=== PATIENT | female | born 1940 | race Caucasian/White ===

== ENCOUNTER 2018-06-16 19:11 | Inpatient (IN) ==
[2018-06-16] MEDS ORDERED: ALBUTEROL/IPRATROPIUM 3 ML NEB RESP TX STA (19:22)
[2018-06-16] MEDS ORDERED: ASPIRIN 325 MG TABLET PO STA (19:22)
[2018-06-16 19:28] LABS: Basophils % 0.6 % (0.0-0.8); Eosinophils # 0.2 10*3/uL (0.0-0.87); Eosinophils % 3.1 % (0.00-10.9); Hematocrit 41.3 VOL% (35.7-47.0); Immature Granulocytes % 0.5 %; Immature Granulocytes Absolute 0.03 #; Lymphocytes # 1.1 10*3/uL (1.4-4.0); Lymphocytes % 16.9 % (21.3-54.2); Mean Corpuscular HGB Conc 33.9 GM/DL (32-36); Mean Corpuscular Hemoglobin 34 PG (27-34); Mean Platelet Volume 9.6 FL (9.6-12.0); Monocytes # 0.9 10*3/uL (0.11-0.8); Monocytes % 14.2 % (1.7-12.7); Neutrophils # 4.2 10*3/uL (1.4-7.4); Neutrophils % 64.7 % (38.7-73.9); Platelet Count 213 T/CUMM (130-400); Red Blood Count 4.13 MC/CUMM (3.8-5.5); Red Cell Distribution Width 12.4 % (9.3-17.3); White Blood Count 6.5 T/CUMM (4-12)
[2018-06-16 19:37] LABS: INR 0.9
[2018-06-16 19:51] LABS: Alanine Aminotransferase 85 U/L (13-56); Albumin 3.9 G/DL (3.4-5.0); Alkaline Phosphatase 75 U/L (45-117); Aspartate Amino Transferase 68 U/L (0-37); Blood Urea Nitrogen 12 MG/DL (7-18); Calcium 8.5 MG/DL (8.5-10.1); Glucose 109 MG/DL (74-106); Potassium 3.9 MMOL/L (3.5-5.1); Sodium 136 MMOL/L (136-145); Total Protein 7.8 G/DL (6.4-8.3); Troponin I < 0.015 NG/ML (0.00-0.045)
[2018-06-16] MEDS ORDERED: RACEPINEPHRINE 0.5 ML NEB RESP TX STA (20:37)
[2018-06-16] MEDS ORDERED: methylPREDNISolone SOD SUC 125 MG/2 ML VIAL IV STA (20:37)
[2018-06-16] MEDS ORDERED: LORazepam 2 MG/1 ML VIAL IV STA (20:54)
[2018-06-16] MEDS ORDERED: cefTRIAXone 1,000 MG in SODIUM CHLORIDE 0.9% 100 ML IV STA (21:07)
[2018-06-16] MEDS ORDERED: AZITHROMYCIN INJ 500 MG in SODIUM CHLORIDE 0.9% 250 ML IV STA ×2 (21:07→23:14)
[2018-06-16] MEDS ORDERED: ONDANSETRON 4 MG/2 ML VIAL IV PRN (21:18)
[2018-06-16] MEDS: SODIUM CHLORIDE 0.9% 1,000 ML IV SCH (22:55)
[2018-06-17] MEDS: methylPREDNISolone SOD SUC 40 MG/1 ML VIAL IV SCH ×4 (03:15→22:26)
[2018-06-17] MEDS: ACETAMINOPHEN 325 MG TABLET PO PRN ×2 (04:24→17:53)
[2018-06-17 05:15] LABS: Basophils % 0.2 % (0.0-0.8); Hematocrit 40.8 VOL% (35.7-47.0); Hemoglobin 13.3 GM/DL (12.0-16.0); Immature Granulocytes % 0.5 %; Immature Granulocytes Absolute 0.03 #; Lymphocytes # 0.4 10*3/uL (1.4-4.0); Lymphocytes % 7.2 % (21.3-54.2); Mean Corpuscular HGB Conc 32.6 GM/DL (32-36); Mean Corpuscular Hemoglobin 34 PG (27-34); Mean Platelet Volume 9.9 FL (9.6-12.0); Monocytes # 0.1 10*3/uL (0.11-0.8); Monocytes % 1.2 % (1.7-12.7); Neutrophils # 5.2 10*3/uL (1.4-7.4); Neutrophils % 90.9 % (38.7-73.9); Platelet Count 221 T/CUMM (130-400); Red Blood Count 3.96 MC/CUMM (3.8-5.5); Red Cell Distribution Width 12.4 % (9.3-17.3); White Blood Count 5.7 T/CUMM (4-12)
[2018-06-17 05:28] LABS: Albumin 3.2 G/DL (3.4-5.0); Bilirubin,Total 0.9 MG/DL (0.2-1.0); Calcium 8.4 MG/DL (8.5-10.1); Osmolality,Calculated 283.7 MOS/KG (273-304); Potassium 4.5 MMOL/L (3.5-5.1); Total Protein 7.1 G/DL (6.4-8.3)
[2018-06-17 05:57] LABS: Band Neutrophils 1 % (0-10); Lymphocytes 6 % (20-55); Metamyelocytes 1 %; Platelet Estimate Normal; Segmented Neutrophils 90 % (50-85); Total Cells Counted 100
[2018-06-17 05:58] LABS: Anisocytosis Slight; Macrocytosis Slight
[2018-06-17] MEDS: SODIUM CHLORIDE 0.9% 1,000 ML IV SCH ×3 (07:47→22:20)
[2018-06-17] MEDS: cefTRIAXone 1,000 MG in SYRINGE 1 EACH IV SCH (10:06)
[2018-06-17] MEDS: CHOLECALCIFEROL 5,000 UNIT TABLET PO SCH (10:07)
[2018-06-17] MEDS: PANTOPRAZOLE 40 MG TABLET PO SCH (10:07)
[2018-06-17] MEDS: DOCUSATE SODIUM 100 MG CAPSULE PO SCH ×2 (10:07→21:55)
[2018-06-17] MEDS: ROSUVASTATIN 10 MG TABLET PO SCH (10:07)
[2018-06-17] MEDS: ENOXAPARIN 40 MG/0.4 ML SYRINGE SUBCUT SCH (10:07)
[2018-06-17] MEDS: SPIRONOLACTONE 25 MG TABLET PO SCH (10:08)
[2018-06-17] MEDS: BUMETANIDE 1 MG TABLET PO SCH (10:08)
[2018-06-17] MEDS: DILTIAZEM CD 120 MG CAPSULE PO SCH (10:08)
[2018-06-17] MEDS: ASPIRIN CHEW 81 MG TABLET PO SCH (10:08)
[2018-06-17] MEDS: ZAFIRLUKAST 20 MG TABLET PO SCH (10:26)
[2018-06-17] MEDS ORDERED: METOPROLOL SUCCINATE XL 50 MG TABLET PO SCH (10:30)
[2018-06-17] MEDS: ALBUTEROL/IPRATROPIUM 3 ML NEB RESP TX SCH ×2 (14:24→14:34)
[2018-06-17] MEDS ORDERED: KETOROLAC 15 MG/1 ML VIAL IV ONE (15:00)
[2018-06-17] MEDS ORDERED: ALBUTEROL 1.25 MG/3 ML NEB RESP TX PRN (17:42)
[2018-06-17] MEDS: CLORAZEPATE 7.5 MG TABLET PO SCH (17:52)
[2018-06-17] MEDS ORDERED: BENZONATATE 100 MG CAPSULE PO SCH (21:00)
[2018-06-17] MEDS: FLUTICASONE 44 MCG/PUFF INHALER 10.6 GM INH SCH (21:54)
[2018-06-17] MEDS: DEXTROMETHORPHAN ER 6 MG/ML 90 ML/BOTTLE PO SCH (21:54)
[2018-06-17] MEDS: AMITRIPTYLINE 10 MG TABLET PO SCH (21:54)
[2018-06-18] MEDS ORDERED: DEXTROSE 50% 25 GM/50 ML VIAL IV PRN (05:17)
[2018-06-18] MEDS ORDERED: GLUCAGON 1 MG VIAL IM PRN (05:17)
[2018-06-18] MEDS: SODIUM CHLORIDE 0.9% 1,000 ML IV SCH ×2 (06:42→16:25)
[2018-06-18] MEDS: methylPREDNISolone SOD SUC 40 MG/1 ML VIAL IV SCH ×2 (06:43→16:25)
[2018-06-18] MEDS: LEVOTHYROXINE 50 MCG TABLET PO SCH (06:43)
[2018-06-18] MEDS: ALBUTEROL 1.25 MG/3 ML NEB RESP TX SCH ×5 (07:18→23:06)
[2018-06-18] MEDS: BENZONATATE 100 MG CAPSULE PO PRN ×2 (08:47→18:56)
[2018-06-18] MEDS: DILTIAZEM CD 120 MG CAPSULE PO SCH (08:47)
[2018-06-18] MEDS: ROSUVASTATIN 10 MG TABLET PO SCH (08:47)
[2018-06-18] MEDS: MAGNESIUM CHLORIDE 64 MG TABLET PO SCH (08:47)
[2018-06-18] MEDS: POTASSIUM CHLORIDE 10 MEQ TABLET PO SCH (08:48)
[2018-06-18] MEDS: PANTOPRAZOLE 40 MG TABLET PO SCH (08:48)
[2018-06-18] MEDS: CLORAZEPATE 7.5 MG TABLET PO SCH ×2 (08:48→20:51)
[2018-06-18] MEDS: METOPROLOL SUCCINATE XL 25 MG TABLET PO SCH (08:48)
[2018-06-18] MEDS: DOCUSATE SODIUM 100 MG CAPSULE PO SCH ×3 (08:48→20:54)
[2018-06-18] MEDS: BUMETANIDE 1 MG TABLET PO SCH (08:48)
[2018-06-18] MEDS: CHOLECALCIFEROL 5,000 UNIT TABLET PO SCH (08:48)
[2018-06-18] MEDS: ASPIRIN CHEW 81 MG TABLET PO SCH (08:48)
[2018-06-18] MEDS: cefTRIAXone 1,000 MG in SYRINGE 1 EACH IV SCH (08:48)
[2018-06-18] MEDS: SPIRONOLACTONE 25 MG TABLET PO SCH (08:48)
[2018-06-18] MEDS: INSULIN LISPRO 100 UNIT/ML SUBCUT SCH ×4 (08:49→20:53)
[2018-06-18] MEDS: FLUTICASONE 44 MCG/PUFF INHALER 10.6 GM INH SCH ×2 (08:53→20:51)
[2018-06-18] MEDS: ZAFIRLUKAST 20 MG TABLET PO SCH (08:53)
[2018-06-18] MEDS: ENOXAPARIN 40 MG/0.4 ML SYRINGE SUBCUT SCH (09:00)
[2018-06-18] MEDS: DEXTROMETHORPHAN ER 6 MG/ML 90 ML/BOTTLE PO SCH ×2 (09:00→20:51)
[2018-06-18] MEDS: ACETAMINOPHEN 325 MG TABLET PO PRN (18:56)
[2018-06-18] MEDS: AMITRIPTYLINE 10 MG TABLET PO SCH (20:51)
[2018-06-18] MEDS: traMADol 50 MG TABLET PO PRN (22:56)
[2018-06-19] MEDS: CYCLOBENZAPRINE 10 MG TABLET PO PRN (00:16)
[2018-06-19] MEDS: methylPREDNISolone SOD SUC 40 MG/1 ML VIAL IV SCH ×3 (00:17→17:31)
[2018-06-19] MEDS: SODIUM CHLORIDE 0.9% 1,000 ML IV SCH ×3 (00:19→20:48)
[2018-06-19] MEDS: ALBUTEROL 1.25 MG/3 ML NEB RESP TX SCH ×6 (02:59→23:43)
[2018-06-19] MEDS: LEVOTHYROXINE 50 MCG TABLET PO SCH (07:06)
[2018-06-19 07:13] LABS: Basophils % 0.1 % (0.0-0.8); Hematocrit 35.4 VOL% (35.7-47.0); Hemoglobin 11.5 GM/DL (12.0-16.0); Immature Granulocytes % 1.4 %; Immature Granulocytes Absolute 0.13 #; Lymphocytes # 0.5 10*3/uL (1.4-4.0); Lymphocytes % 5.2 % (21.3-54.2); Mean Corpuscular HGB Conc 32.5 GM/DL (32-36); Mean Corpuscular Hemoglobin 33 PG (27-34); Mean Corpuscular Volume 102.9 FL (87-102); Mean Platelet Volume 10.1 FL (9.6-12.0); Monocytes # 0.3 10*3/uL (0.11-0.8); Monocytes % 3.3 % (1.7-12.7); Neutrophils # 8.5 10*3/uL (1.4-7.4); Platelet Count 190 T/CUMM (130-400); Red Blood Count 3.44 MC/CUMM (3.8-5.5); Red Cell Distribution Width 12.7 % (9.3-17.3); White Blood Count 9.4 T/CUMM (4-12)
[2018-06-19 07:37] LABS: Calcium 7.9 MG/DL (8.5-10.1); Osmolality,Calculated 283.5 MOS/KG (273-304); Potassium 3.7 MMOL/L (3.5-5.1)
[2018-06-19] MEDS: INSULIN LISPRO 100 UNIT/ML SUBCUT SCH ×4 (09:20→21:47)
[2018-06-19] MEDS: CLORAZEPATE 7.5 MG TABLET PO SCH ×2 (09:21→20:51)
[2018-06-19] MEDS: ZAFIRLUKAST 20 MG TABLET PO SCH (09:21)
[2018-06-19] MEDS: BENZONATATE 100 MG CAPSULE PO PRN (09:22)
[2018-06-19] MEDS: METOPROLOL SUCCINATE XL 25 MG TABLET PO SCH (09:22)
[2018-06-19] MEDS: PANTOPRAZOLE 40 MG TABLET PO SCH (09:22)
[2018-06-19] MEDS: MAGNESIUM CHLORIDE 64 MG TABLET PO SCH (09:23)
[2018-06-19] MEDS: BUMETANIDE 1 MG TABLET PO SCH (09:23)
[2018-06-19] MEDS: POTASSIUM CHLORIDE 10 MEQ TABLET PO SCH (09:23)
[2018-06-19] MEDS: SPIRONOLACTONE 25 MG TABLET PO SCH (09:23)
[2018-06-19] MEDS: ROSUVASTATIN 10 MG TABLET PO SCH (09:24)
[2018-06-19] MEDS: ASPIRIN CHEW 81 MG TABLET PO SCH (09:24)
[2018-06-19] MEDS: DOCUSATE SODIUM 100 MG CAPSULE PO SCH ×2 (09:24→20:50)
[2018-06-19] MEDS: DILTIAZEM CD 120 MG CAPSULE PO SCH (09:24)
[2018-06-19] MEDS: CHOLECALCIFEROL 5,000 UNIT TABLET PO SCH (09:24)
[2018-06-19] MEDS: ENOXAPARIN 40 MG/0.4 ML SYRINGE SUBCUT SCH (09:25)
[2018-06-19] MEDS: cefTRIAXone 1,000 MG in SYRINGE 1 EACH IV SCH (09:26)
[2018-06-19] MEDS: FLUTICASONE 44 MCG/PUFF INHALER 10.6 GM INH SCH ×2 (09:26→20:53)
[2018-06-19] MEDS: DEXTROMETHORPHAN ER 6 MG/ML 90 ML/BOTTLE PO SCH ×2 (09:30→20:49)
[2018-06-19] MEDS: PIPERACILLIN/TAZOBACTAM 3,375 MG in SODIUM CHLORIDE 0.9% 100 ML IV SCH ×2 (12:34→20:46)
[2018-06-19] MEDS: DORNASE ALFA 2.5 MG/2.5 ML VIAL RESP TX SCH ×2 (13:17→19:40)
[2018-06-19] MEDS: traMADol 50 MG TABLET PO PRN (17:31)
[2018-06-19] MEDS: AMITRIPTYLINE 10 MG TABLET PO SCH (20:51)
[2018-06-20] MEDS: CYCLOBENZAPRINE 10 MG TABLET PO PRN ×2 (00:13→22:00)
[2018-06-20] MEDS: methylPREDNISolone SOD SUC 40 MG/1 ML VIAL IV SCH ×3 (00:13→17:42)
[2018-06-20] MEDS: ALBUTEROL 1.25 MG/3 ML NEB RESP TX SCH ×6 (03:20→22:54)
[2018-06-20] MEDS: PIPERACILLIN/TAZOBACTAM 3,375 MG in SODIUM CHLORIDE 0.9% 100 ML IV SCH ×3 (05:10→21:55)
[2018-06-20 05:24] LABS: Hematocrit 34.6 VOL% (35.7-47.0); Hemoglobin 11.3 GM/DL (12.0-16.0); Immature Granulocytes % 2.5 %; Immature Granulocytes Absolute 0.18 #; Lymphocytes # 0.5 10*3/uL (1.4-4.0); Lymphocytes % 6.6 % (21.3-54.2); Mean Corpuscular HGB Conc 32.7 GM/DL (32-36); Mean Corpuscular Hemoglobin 33 PG (27-34); Mean Corpuscular Volume 101.8 FL (87-102); Mean Platelet Volume 10.3 FL (9.6-12.0); Monocytes # 0.4 10*3/uL (0.11-0.8); Monocytes % 5.8 % (1.7-12.7); Neutrophils # 6.2 10*3/uL (1.4-7.4); Neutrophils % 85.1 % (38.7-73.9); Platelet Count 201 T/CUMM (130-400); Red Cell Distribution Width 12.6 % (9.3-17.3); White Blood Count 7.3 T/CUMM (4-12)
[2018-06-20 05:47] LABS: Albumin 2.9 G/DL (3.4-5.0); Bilirubin,Total 0.4 MG/DL (0.2-1.0); Calcium 7.8 MG/DL (8.5-10.1); Osmolality,Calculated 286.3 MOS/KG (273-304); Potassium 3.3 MMOL/L (3.5-5.1)
[2018-06-20] MEDS: DORNASE ALFA 2.5 MG/2.5 ML VIAL RESP TX SCH ×2 (07:52→19:55)
[2018-06-20 08:58] LABS: INR 0.9
[2018-06-20] MEDS: ROSUVASTATIN 10 MG TABLET PO SCH (10:06)
[2018-06-20] MEDS: BUMETANIDE 1 MG TABLET PO SCH (10:06)
[2018-06-20] MEDS: ASPIRIN CHEW 81 MG TABLET PO SCH (10:06)
[2018-06-20] MEDS: CLORAZEPATE 7.5 MG TABLET PO SCH ×2 (10:06→22:02)
[2018-06-20] MEDS: PANTOPRAZOLE 40 MG TABLET PO SCH (10:07)
[2018-06-20] MEDS: POTASSIUM CHLORIDE 10 MEQ TABLET PO SCH (10:07)
[2018-06-20] MEDS: MAGNESIUM CHLORIDE 64 MG TABLET PO SCH (10:07)
[2018-06-20] MEDS: BENZONATATE 100 MG CAPSULE PO PRN (10:08)
[2018-06-20] MEDS: DILTIAZEM CD 120 MG CAPSULE PO SCH (10:08)
[2018-06-20] MEDS: SPIRONOLACTONE 25 MG TABLET PO SCH (10:08)
[2018-06-20] MEDS: DOCUSATE SODIUM 100 MG CAPSULE PO SCH ×2 (10:09→22:01)
[2018-06-20] MEDS: CHOLECALCIFEROL 5,000 UNIT TABLET PO SCH (10:09)
[2018-06-20] MEDS: DEXTROMETHORPHAN ER 6 MG/ML 90 ML/BOTTLE PO SCH ×2 (10:10→22:10)
[2018-06-20] MEDS: ENOXAPARIN 40 MG/0.4 ML SYRINGE SUBCUT SCH (10:10)
[2018-06-20] MEDS: ZAFIRLUKAST 20 MG TABLET PO SCH (10:11)
[2018-06-20] MEDS: FLUTICASONE 44 MCG/PUFF INHALER 10.6 GM INH SCH ×2 (10:11→22:10)
[2018-06-20] MEDS: LEVOTHYROXINE 50 MCG TABLET PO SCH (10:11)
[2018-06-20] MEDS: INSULIN LISPRO 100 UNIT/ML SUBCUT SCH ×4 (10:12→22:04)
[2018-06-20] MEDS: METOPROLOL SUCCINATE XL 25 MG TABLET PO SCH (10:12)
[2018-06-20] MEDS: SODIUM CHLORIDE 0.9% 1,000 ML IV SCH (10:32)
[2018-06-20] MEDS: AMITRIPTYLINE 10 MG TABLET PO SCH (22:01)
[2018-06-20] MEDS: POTASSIUM CHLORIDE 20 MEQ TABLET PO SCH (22:02)
[2018-06-21] MEDS: methylPREDNISolone SOD SUC 40 MG/1 ML VIAL IV SCH ×3 (01:30→17:45)
[2018-06-21] MEDS: ALBUTEROL 1.25 MG/3 ML NEB RESP TX SCH ×5 (03:59→20:28)
[2018-06-21] MEDS: PIPERACILLIN/TAZOBACTAM 3,375 MG in SODIUM CHLORIDE 0.9% 100 ML IV SCH ×2 (04:27→17:45)
[2018-06-21] MEDS ORDERED: ASPIRIN CHEW 81 MG TABLET PO ONE (07:20)
[2018-06-21] MEDS ORDERED: NITROGLYCERIN SL 0.4 MG TABLET SL PRN (07:20)
[2018-06-21] MEDS ORDERED: NITROGLYCERIN SL 0.4 MG TABLET SL ONE (07:21)
[2018-06-21] MEDS ORDERED: ASPIRIN 325 MG TABLET ONE (07:21)
[2018-06-21] MEDS ORDERED: PROMETHAZINE 25 MG/1 ML VIAL IM ONE (07:30)
[2018-06-21] MEDS: DORNASE ALFA 2.5 MG/2.5 ML VIAL RESP TX SCH ×2 (07:34→20:29)
[2018-06-21 07:42] LABS: Basophils % 0.1 % (0.0-0.8); Hematocrit 36.8 VOL% (35.7-47.0); Hemoglobin 12.5 GM/DL (12.0-16.0); Immature Granulocytes % 4.4 %; Immature Granulocytes Absolute 0.37 #; Lymphocytes # 0.7 10*3/uL (1.4-4.0); Lymphocytes % 7.9 % (21.3-54.2); Mean Corpuscular Hemoglobin 34 PG (27-34); Mean Platelet Volume 10.1 FL (9.6-12.0); Monocytes # 0.6 10*3/uL (0.11-0.8); Monocytes % 6.6 % (1.7-12.7); NRBC # 0.02 10*3/uL; Neutrophils # 6.8 10*3/uL (1.4-7.4); Platelet Count 224 T/CUMM (130-400); Red Blood Count 3.68 MC/CUMM (3.8-5.5); Red Cell Distribution Width 12.5 % (9.3-17.3); White Blood Count 8.4 T/CUMM (4-12)
[2018-06-21] MEDS ORDERED: LIDOCAINE 1% 20 ML VIAL MISC INJ ONE (08:00)
[2018-06-21] MEDS ORDERED: MIDAZOLAM 2 MG/2 ML VIAL IV ONE (08:00)
[2018-06-21] MEDS ORDERED: LIDOCAINE 2% 20 ML VIAL RESP TX ONE (08:00)
[2018-06-21 08:04] LABS: Albumin 2.9 G/DL (3.4-5.0); Bilirubin,Total 0.6 MG/DL (0.2-1.0); Calcium 8.3 MG/DL (8.5-10.1); Osmolality,Calculated 277.1 MOS/KG (273-304); Potassium 4.5 MMOL/L (3.5-5.1); Total Protein 6.6 G/DL (6.4-8.3)
[2018-06-21] MEDS ORDERED: REGADENOSON 0.4 MG/5 ML SYRINGE IV ONE (10:39)
[2018-06-21] MEDS: METOPROLOL SUCCINATE XL 25 MG TABLET PO SCH (11:31)
[2018-06-21] MEDS: DILTIAZEM CD 120 MG CAPSULE PO SCH (11:32)
[2018-06-21] MEDS: BUMETANIDE 1 MG TABLET PO SCH (11:32)
[2018-06-21] MEDS: CLORAZEPATE 7.5 MG TABLET PO SCH ×2 (11:32→21:31)
[2018-06-21] MEDS: CHOLECALCIFEROL 5,000 UNIT TABLET PO SCH (11:32)
[2018-06-21] MEDS: LEVOTHYROXINE 50 MCG TABLET PO SCH (11:32)
[2018-06-21] MEDS: MAGNESIUM CHLORIDE 64 MG TABLET PO SCH (11:32)
[2018-06-21] MEDS: SPIRONOLACTONE 25 MG TABLET PO SCH (11:33)
[2018-06-21] MEDS: ZAFIRLUKAST 20 MG TABLET PO SCH (11:33)
[2018-06-21] MEDS: POTASSIUM CHLORIDE 20 MEQ TABLET PO SCH ×3 (11:33→21:38)
[2018-06-21] MEDS: DOCUSATE SODIUM 100 MG CAPSULE PO SCH ×2 (11:33→21:32)
[2018-06-21] MEDS: PANTOPRAZOLE 40 MG TABLET PO SCH (11:33)
[2018-06-21] MEDS: DEXTROMETHORPHAN ER 6 MG/ML 90 ML/BOTTLE PO SCH ×2 (11:34→21:35)
[2018-06-21] MEDS: ROSUVASTATIN 10 MG TABLET PO SCH (11:34)
[2018-06-21] MEDS: FLUTICASONE 44 MCG/PUFF INHALER 10.6 GM INH SCH ×2 (11:35→21:41)
[2018-06-21] MEDS: ASPIRIN CHEW 81 MG TABLET PO SCH (11:35)
[2018-06-21] MEDS: INSULIN LISPRO 100 UNIT/ML SUBCUT SCH ×4 (11:52→23:20)
[2018-06-21] MEDS: CYCLOBENZAPRINE 10 MG TABLET PO PRN (11:53)
[2018-06-21] MEDS ORDERED: DEXTROSE 50% 25 GM/50 ML VIAL IV PRN (17:04)
[2018-06-21] MEDS ORDERED: GLUCAGON 1 MG VIAL IM PRN (17:04)
[2018-06-21] MEDS: ENOXAPARIN 40 MG/0.4 ML SYRINGE SUBCUT SCH (17:47)
[2018-06-21] MEDS: AMITRIPTYLINE 10 MG TABLET PO SCH (21:32)
[2018-06-21] MEDS ORDERED: KETOROLAC 15 MG/1 ML VIAL IV ONE (22:01)
[2018-06-22] MEDS: PIPERACILLIN/TAZOBACTAM 3,375 MG in SODIUM CHLORIDE 0.9% 100 ML IV SCH ×4 (00:14→21:38)
[2018-06-22] MEDS: ALBUTEROL/IPRATROPIUM 3 ML NEB RESP TX SCH ×4 (00:15→19:23)
[2018-06-22] MEDS: methylPREDNISolone SOD SUC 40 MG/1 ML VIAL IV SCH ×3 (01:01→17:58)
[2018-06-22 06:07] LABS: Basophils % 0.1 % (0.0-0.8); Hemoglobin 12.3 GM/DL (12.0-16.0); Immature Granulocytes % 2.7 %; Immature Granulocytes Absolute 0.22 #; Lymphocytes # 0.6 10*3/uL (1.4-4.0); Mean Corpuscular HGB Conc 33.2 GM/DL (32-36); Mean Corpuscular Hemoglobin 33 PG (27-34); Mean Corpuscular Volume 100.3 FL (87-102); Mean Platelet Volume 10.4 FL (9.6-12.0); Monocytes # 0.8 10*3/uL (0.11-0.8); Monocytes % 9.8 % (1.7-12.7); Neutrophils # 6.6 10*3/uL (1.4-7.4); Neutrophils % 80.4 % (38.7-73.9); Platelet Count 229 T/CUMM (130-400); Red Blood Count 3.69 MC/CUMM (3.8-5.5); Red Cell Distribution Width 12.4 % (9.3-17.3); White Blood Count 8.2 T/CUMM (4-12)
[2018-06-22] MEDS: LEVOTHYROXINE 50 MCG TABLET PO SCH (06:14)
[2018-06-22 06:26] LABS: Osmolality,Calculated 283.7 MOS/KG (273-304); Potassium 3.5 MMOL/L (3.5-5.1)
[2018-06-22] MEDS: DORNASE ALFA 2.5 MG/2.5 ML VIAL RESP TX SCH ×2 (07:21→19:31)
[2018-06-22] MEDS: INSULIN LISPRO 100 UNIT/ML SUBCUT SCH ×4 (09:10→22:03)
[2018-06-22] MEDS: DEXTROMETHORPHAN ER 6 MG/ML 90 ML/BOTTLE PO SCH ×2 (09:10→21:25)
[2018-06-22] MEDS: FLUTICASONE 44 MCG/PUFF INHALER 10.6 GM INH SCH ×2 (09:11→21:25)
[2018-06-22] MEDS: PANTOPRAZOLE 40 MG TABLET PO SCH (09:14)
[2018-06-22] MEDS: ZAFIRLUKAST 20 MG TABLET PO SCH (09:14)
[2018-06-22] MEDS: ASPIRIN CHEW 81 MG TABLET PO SCH (09:14)
[2018-06-22] MEDS: CLORAZEPATE 7.5 MG TABLET PO SCH ×2 (09:14→21:25)
[2018-06-22] MEDS: DOCUSATE SODIUM 100 MG CAPSULE PO SCH ×2 (09:14→21:25)
[2018-06-22] MEDS: MAGNESIUM CHLORIDE 64 MG TABLET PO SCH (09:14)
[2018-06-22] MEDS: POTASSIUM CHLORIDE 20 MEQ TABLET PO SCH ×2 (09:14→21:26)
[2018-06-22] MEDS: CHOLECALCIFEROL 5,000 UNIT TABLET PO SCH (09:15)
[2018-06-22] MEDS: BUMETANIDE 1 MG TABLET PO SCH (09:15)
[2018-06-22] MEDS: DILTIAZEM CD 120 MG CAPSULE PO SCH (09:15)
[2018-06-22] MEDS: ROSUVASTATIN 10 MG TABLET PO SCH (09:15)
[2018-06-22] MEDS: SPIRONOLACTONE 25 MG TABLET PO SCH (09:15)
[2018-06-22] MEDS: METOPROLOL SUCCINATE XL 25 MG TABLET PO SCH (09:15)
[2018-06-22] MEDS: ENOXAPARIN 40 MG/0.4 ML SYRINGE SUBCUT SCH (09:16)
[2018-06-22] MEDS ORDERED: MAGNESIUM SULF RIDER 2 GM in PREMIX 1 EACH IV PRN (10:26)
[2018-06-22] MEDS ORDERED: ASPIRIN 325 MG TABLET PO ONE (10:26)
[2018-06-22] MEDS ORDERED: POTASSIUM CHLORIDE RIDER 10 MEQ in PREMIX 1 EACH IV PRN (10:26)
[2018-06-22] MEDS ORDERED: DIAZEPAM 5 MG TABLET PO ONE (10:26)
[2018-06-22] MEDS ORDERED: diphenhydrAMINE CAP 25 MG CAPSULE PO ONE (10:26)
[2018-06-22] MEDS: AMITRIPTYLINE 10 MG TABLET PO SCH (21:25)
[2018-06-22] MEDS: CYCLOBENZAPRINE 10 MG TABLET PO PRN (21:29)
[2018-06-23] MEDS: ALBUTEROL/IPRATROPIUM 3 ML NEB RESP TX SCH ×4 (00:08→20:25)
[2018-06-23] MEDS: methylPREDNISolone SOD SUC 40 MG/1 ML VIAL IV SCH ×3 (01:37→16:54)
[2018-06-23] MEDS: PIPERACILLIN/TAZOBACTAM 3,375 MG in SODIUM CHLORIDE 0.9% 100 ML IV SCH ×3 (05:10→21:28)
[2018-06-23 05:11] LABS: Calcium 8.4 MG/DL (8.5-10.1); Osmolality,Calculated 290.5 MOS/KG (273-304)
[2018-06-23 05:12] LABS: Basophils % 0.2 % (0.0-0.8); Hematocrit 37.7 VOL% (35.7-47.0); Hemoglobin 12.5 GM/DL (12.0-16.0); Immature Granulocytes % 2.6 %; Immature Granulocytes Absolute 0.32 #; Lymphocytes # 0.4 10*3/uL (1.4-4.0); Lymphocytes % 3.3 % (21.3-54.2); Mean Corpuscular HGB Conc 33.2 GM/DL (32-36); Mean Corpuscular Hemoglobin 33 PG (27-34); Mean Corpuscular Volume 100.3 FL (87-102); Mean Platelet Volume 10.4 FL (9.6-12.0); Monocytes % 7.8 % (1.7-12.7); NRBC # 0.03 10*3/uL; Neutrophils # 10.7 10*3/uL (1.4-7.4); Neutrophils % 86.1 % (38.7-73.9); Platelet Count 232 T/CUMM (130-400); Red Blood Count 3.76 MC/CUMM (3.8-5.5); Red Cell Distribution Width 12.4 % (9.3-17.3); White Blood Count 12.4 T/CUMM (4-12)
[2018-06-23 05:41] LABS: Band Neutrophils 1 % (0-10); Hypochromasia 1+; Lymphocytes 4 % (20-55); Platelet Estimate Adequate; Segmented Neutrophils 85 % (50-85); Total Cells Counted 100
[2018-06-23] MEDS: LEVOTHYROXINE 50 MCG TABLET PO SCH (06:07)
[2018-06-23] MEDS ORDERED: DIAZEPAM 5 MG TABLET PO ONE (06:30)
[2018-06-23] MEDS ORDERED: diphenhydrAMINE CAP 25 MG CAPSULE PO ONE (06:30)
[2018-06-23] MEDS ORDERED: ASPIRIN 325 MG TABLET PO ONE (06:30)
[2018-06-23] MEDS: SODIUM CHLORIDE 0.9% 1,000 ML IV SCH ×3 (06:32→21:38)
[2018-06-23] MEDS: DORNASE ALFA 2.5 MG/2.5 ML VIAL RESP TX SCH ×2 (07:16→20:25)
[2018-06-23] MEDS ORDERED: LIDOCAINE 1% 20 ML VIAL ONE (07:28)
[2018-06-23] MEDS ORDERED: fentaNYL 100 MCG/2 ML VIAL ONE (07:30)
[2018-06-23] MEDS ORDERED: MIDAZOLAM 2 MG/2 ML VIAL ONE (07:30)
[2018-06-23] MEDS: INSULIN LISPRO 100 UNIT/ML SUBCUT SCH ×4 (07:37→21:29)
[2018-06-23] MEDS: SPIRONOLACTONE 25 MG TABLET PO SCH (10:11)
[2018-06-23] MEDS: METOPROLOL SUCCINATE XL 25 MG TABLET PO SCH (10:11)
[2018-06-23] MEDS: CLORAZEPATE 3.75 MG TABLET PO SCH ×2 (10:11→21:27)
[2018-06-23] MEDS: BUMETANIDE 1 MG TABLET PO SCH (10:11)
[2018-06-23] MEDS: ZAFIRLUKAST 20 MG TABLET PO SCH (10:11)
[2018-06-23] MEDS: DOCUSATE SODIUM 100 MG CAPSULE PO SCH ×2 (10:12→21:29)
[2018-06-23] MEDS: PANTOPRAZOLE 40 MG TABLET PO SCH (10:12)
[2018-06-23] MEDS: ROSUVASTATIN 10 MG TABLET PO SCH (10:12)
[2018-06-23] MEDS: MAGNESIUM CHLORIDE 64 MG TABLET PO SCH (10:12)
[2018-06-23] MEDS: DILTIAZEM CD 120 MG CAPSULE PO SCH (10:12)
[2018-06-23] MEDS: POTASSIUM CHLORIDE 20 MEQ TABLET PO SCH ×2 (10:12→21:27)
[2018-06-23] MEDS: ENOXAPARIN 40 MG/0.4 ML SYRINGE SUBCUT SCH (10:13)
[2018-06-23] MEDS: CHOLECALCIFEROL 5,000 UNIT TABLET PO SCH (10:13)
[2018-06-23] MEDS: ASPIRIN CHEW 81 MG TABLET PO SCH (10:14)
[2018-06-23] MEDS: FLUTICASONE 44 MCG/PUFF INHALER 10.6 GM INH SCH ×2 (10:51→21:28)
[2018-06-23] MEDS: DEXTROMETHORPHAN ER 6 MG/ML 90 ML/BOTTLE PO SCH ×2 (10:51→21:28)
[2018-06-23] MEDS: CYCLOBENZAPRINE 10 MG TABLET PO PRN (21:27)
[2018-06-23] MEDS: AMITRIPTYLINE 10 MG TABLET PO SCH (21:28)
[2018-06-24] MEDS: ALBUTEROL/IPRATROPIUM 3 ML NEB RESP TX SCH ×4 (00:29→19:57)
[2018-06-24] MEDS: PIPERACILLIN/TAZOBACTAM 3,375 MG in SODIUM CHLORIDE 0.9% 100 ML IV SCH (03:34)
[2018-06-24] MEDS ORDERED: methylPREDNISolone SOD SUC 40 MG/1 ML VIAL IV SCH (05:00)
[2018-06-24 05:12] LABS: Basophils % 0.2 % (0.0-0.8); Hemoglobin 11.9 GM/DL (12.0-16.0); Immature Granulocytes % 3.3 %; Immature Granulocytes Absolute 0.38 #; Lymphocytes # 0.5 10*3/uL (1.4-4.0); Lymphocytes % 4.2 % (21.3-54.2); Mean Corpuscular HGB Conc 33.1 GM/DL (32-36); Mean Corpuscular Hemoglobin 33 PG (27-34); Mean Corpuscular Volume 100.8 FL (87-102); Mean Platelet Volume 10.3 FL (9.6-12.0); Monocytes # 0.8 10*3/uL (0.11-0.8); Monocytes % 6.9 % (1.7-12.7); Neutrophils # 9.9 10*3/uL (1.4-7.4); Neutrophils % 85.4 % (38.7-73.9); Platelet Count 212 T/CUMM (130-400); Red Blood Count 3.57 MC/CUMM (3.8-5.5); Red Cell Distribution Width 12.3 % (9.3-17.3); White Blood Count 11.6 T/CUMM (4-12)
[2018-06-24 05:44] LABS: Osmolality,Calculated 284.7 MOS/KG (273-304); Potassium 4.2 MMOL/L (3.5-5.1)
[2018-06-24 05:47] LABS: Risk Ratio 2.19
[2018-06-24 05:48] LABS: Band Neutrophils 1 % (0-10); Lymphocytes 5 % (20-55); Platelet Estimate Normal; Segmented Neutrophils 89 % (50-85); Smudge Cells 1+; Total Cells Counted 100
[2018-06-24 05:49] LABS: Anisocytosis 1+; Macrocytosis Slight; Poikilocytosis Slight
[2018-06-24] MEDS: LEVOTHYROXINE 50 MCG TABLET PO SCH (06:19)
[2018-06-24] MEDS: ZAFIRLUKAST 20 MG TABLET PO SCH (09:18)
[2018-06-24] MEDS: ENOXAPARIN 40 MG/0.4 ML SYRINGE SUBCUT SCH (09:18)
[2018-06-24] MEDS: INSULIN GLARGINE 100 UNIT/ML SUBCUT SCH (09:18)
[2018-06-24] MEDS: INSULIN LISPRO 100 UNIT/ML SUBCUT SCH ×4 (09:19→21:23)
[2018-06-24] MEDS: BUMETANIDE 1 MG TABLET PO SCH (09:19)
[2018-06-24] MEDS: PANTOPRAZOLE 40 MG TABLET PO SCH (09:19)
[2018-06-24] MEDS: POTASSIUM CHLORIDE 20 MEQ TABLET PO SCH ×2 (09:19→21:23)
[2018-06-24] MEDS: SPIRONOLACTONE 25 MG TABLET PO SCH (09:20)
[2018-06-24] MEDS: ROSUVASTATIN 10 MG TABLET PO SCH (09:20)
[2018-06-24] MEDS: DILTIAZEM CD 120 MG CAPSULE PO SCH (09:20)
[2018-06-24] MEDS: METOPROLOL SUCCINATE XL 25 MG TABLET PO SCH (09:20)
[2018-06-24] MEDS: DOCUSATE SODIUM 100 MG CAPSULE PO SCH ×2 (09:20→21:17)
[2018-06-24] MEDS: CHOLECALCIFEROL 5,000 UNIT TABLET PO SCH (09:20)
[2018-06-24] MEDS: MAGNESIUM CHLORIDE 64 MG TABLET PO SCH (09:20)
[2018-06-24] MEDS: ASPIRIN CHEW 81 MG TABLET PO SCH (09:20)
[2018-06-24] MEDS: predniSONE 20 MG TABLET PO SCH ×2 (09:20→21:22)
[2018-06-24] MEDS: CLORAZEPATE 3.75 MG TABLET PO SCH ×2 (09:20→21:22)
[2018-06-24] MEDS: SODIUM CHLORIDE 0.9% 1,000 ML IV SCH ×2 (09:21→09:22)
[2018-06-24] MEDS: DEXTROMETHORPHAN ER 6 MG/ML 90 ML/BOTTLE PO SCH (09:21)
[2018-06-24] MEDS: FLUTICASONE 44 MCG/PUFF INHALER 10.6 GM INH SCH (09:21)
[2018-06-24] MEDS: CYCLOBENZAPRINE 10 MG TABLET PO PRN (21:21)
[2018-06-24] MEDS: AMITRIPTYLINE 10 MG TABLET PO SCH (21:22)
[2018-06-25] MEDS: ALBUTEROL/IPRATROPIUM 3 ML NEB RESP TX SCH ×2 (00:52→07:15)
[2018-06-25] MEDS: FLUTICASONE 44 MCG/PUFF INHALER 10.6 GM INH SCH ×2 (01:09→10:06)
[2018-06-25] MEDS: DEXTROMETHORPHAN ER 6 MG/ML 90 ML/BOTTLE PO SCH ×2 (01:09→10:06)
[2018-06-25] MEDS: SODIUM CHLORIDE 0.9% 1,000 ML IV SCH (06:05)
[2018-06-25] MEDS: LEVOTHYROXINE 50 MCG TABLET PO SCH (06:05)
[2018-06-25] MEDS ORDERED: PROMETHAZINE 25 MG/1 ML VIAL IM ONE (07:00)
[2018-06-25] MEDS ORDERED: GLYCOPYRROLATE 0.4 MG/2 ML VIAL IM ONE (07:00)
[2018-06-25] MEDS ORDERED: MIDAZOLAM 2 MG/2 ML VIAL ONE (07:01)
[2018-06-25] MEDS ORDERED: LIDOCAINE 2% 20 ML VIAL RESP TX ONE (07:30)
[2018-06-25] MEDS ORDERED: LIDOCAINE 1% 20 ML VIAL MISC INJ ONE (07:30)
[2018-06-25] MEDS ORDERED: MIDAZOLAM 2 MG/2 ML VIAL IV ONE (07:30)
[2018-06-25] MEDS ORDERED: LIDOCAINE 2% VISCOUS 100 ML BOTTLE SWISH/SPIT ONE (07:30)
[2018-06-25] MEDS: INSULIN LISPRO 100 UNIT/ML SUBCUT SCH ×2 (08:40→13:19)
[2018-06-25] MEDS: ZAFIRLUKAST 20 MG TABLET PO SCH (10:02)
[2018-06-25] MEDS: CLORAZEPATE 3.75 MG TABLET PO SCH (10:04)
[2018-06-25] MEDS: predniSONE 20 MG TABLET PO SCH (10:04)
[2018-06-25] MEDS: CHOLECALCIFEROL 5,000 UNIT TABLET PO SCH (10:04)
[2018-06-25] MEDS: METOPROLOL SUCCINATE XL 25 MG TABLET PO SCH (10:04)
[2018-06-25] MEDS: BUMETANIDE 1 MG TABLET PO SCH (10:04)
[2018-06-25] MEDS: ROSUVASTATIN 10 MG TABLET PO SCH (10:05)
[2018-06-25] MEDS: POTASSIUM CHLORIDE 20 MEQ TABLET PO SCH (10:05)
[2018-06-25] MEDS: MAGNESIUM CHLORIDE 64 MG TABLET PO SCH (10:05)
[2018-06-25] MEDS: SPIRONOLACTONE 25 MG TABLET PO SCH (10:05)
[2018-06-25] MEDS: DILTIAZEM CD 120 MG CAPSULE PO SCH (10:05)
[2018-06-25] MEDS: PANTOPRAZOLE 40 MG TABLET PO SCH (10:05)
[2018-06-25] MEDS: ENOXAPARIN 40 MG/0.4 ML SYRINGE SUBCUT SCH (10:07)
[2018-06-25] MEDS: INSULIN GLARGINE 100 UNIT/ML SUBCUT SCH (10:07)
[2018-06-25] MEDS: DOCUSATE SODIUM 100 MG CAPSULE PO SCH (10:46)
[2018-06-25] MEDS: ASPIRIN CHEW 81 MG TABLET PO SCH (11:19)
[2018-06-25 12:11] VITALS: BP 130/76
== END 2018-06-25 12:33 | disposition home or self-care (01) | DRG 167 ==
LOC: N.2E 19:11 → N.ED 19:11 → N.2E 22:10
PROVIDERS: ADMIT Family Medicine; ATTEND Family Medicine

== ENCOUNTER 2022-07-25 22:09 | Observation (INO) ==
[2022-07-25] MEDS ORDERED: ONDANSETRON 4 MG/2 ML VIAL IV STA (23:05)
[2022-07-25] MEDS ORDERED: SODIUM CHLORIDE 0.9% 1,000 ML IV STA (23:05)
[2022-07-26 00:45] LABS: Albumin 4.4 G/DL (3.4-5.0); Bilirubin,Total 0.6 MG/DL (0.20-1.00); Calcium 9.4 MG/DL (8.5-10.1); Osmolality,Calculated 276.7 MOS/KG (273-304); Potassium 4.3 MMOL/L (3.5-5.1); Total Protein 7.4 G/DL (6.4-8.2)
[2022-07-26 00:55] LABS: Basophils % 0.2 % (0.0-0.8); Eosinophils % 0.1 % (0.00-10.9); Hematocrit 39.2 VOL% (35.7-47.0); Hemoglobin 13.2 GM/DL (12.0-16.0); Immature Granulocytes % 0.7 %; Immature Granulocytes Absolute 0.09 #; Lymphocytes # 0.6 10*3/uL (1.4-4.0); Lymphocytes % 4.5 % (21.3-54.2); Mean Corpuscular HGB Conc 33.7 GM/DL (32-36); Mean Corpuscular Volume 101.3 FL (87-102); Mean Platelet Volume 9.3 FL (9.6-12.0); Monocytes # 1.1 10*3/uL (0.11-0.8); Monocytes % 8.3 % (1.7-12.7); Neutrophils % 86.2 % (38.7-73.9); Platelet Count 218 T/CUMM (130-400); Red Blood Count 3.87 MC/CUMM (3.8-5.5); Red Cell Distribution Width 13.4 % (9.3-17.3); White Blood Count 13.6 T/CUMM (4-12)
[2022-07-26 01:17] LABS: Eosinophils 4 % (0-10); Lymphocytes 6 % (20-55); Platelet Estimate Normal; Total Cells Counted 100
[2022-07-26 01:18] LABS: RBC,Urine 26 /HPF (0-4)
[2022-07-26 01:19] LABS: Bilirubin,Urine Negative (Negative); Blood, Urine Moderate mg/dL (Negative); Glucose,Urine (UA) Negative (Negative); Ketones,Urine 15 mg/dL (Negative); Nitrite,Urine Negative (Negative); Protein,Urine Negative (Negative); Urine Appearance Clear (Clear); Urine Color Yellow (Yellow); Urine Urobilinogen 0.2 eU/dL (<2.0); Urine pH 8.5 (4.5-8.0)
[2022-07-26] MEDS ORDERED: HYDROmorphone 1 MG/1 ML SYRINGE IV STA (01:53)
[2022-07-26] MEDS ORDERED: ONDANSETRON 4 MG/2 ML VIAL IV ONE (01:53)
[2022-07-26] MEDS ORDERED: PIPERACILLIN/TAZOBACTAM 3,375 MG in SODIUM CHLORIDE 0.9% 100 ML IV STA (02:59)
[2022-07-26] MEDS ORDERED: ONDANSETRON 4 MG/2 ML VIAL IV PRN ×2 (03:02→11:37)
[2022-07-26] MEDS: DEXTROSE 5% NACL 0.45% 1,000 ML IV SCH ×2 (04:15→14:02)
[2022-07-26] MEDS: HYDROmorphone 1 MG/1 ML SYRINGE IV PRN ×3 (05:51→20:41)
[2022-07-26 05:52] LABS: Basophils % 0.2 % (0.0-0.8); Hematocrit 35.7 VOL% (35.7-47.0); Hemoglobin 11.9 GM/DL (12.0-16.0); Immature Granulocytes % 0.5 %; Immature Granulocytes Absolute 0.05 #; Lymphocytes # 0.8 10*3/uL (1.4-4.0); Lymphocytes % 7.6 % (21.3-54.2); Mean Corpuscular HGB Conc 33.3 GM/DL (32-36); Mean Corpuscular Volume 103.2 FL (87-102); Mean Platelet Volume 9.3 FL (9.6-12.0); Monocytes # 0.6 10*3/uL (0.11-0.8); Monocytes % 5.4 % (1.7-12.7); Neutrophils % 86.3 % (38.7-73.9); Platelet Count 177 T/CUMM (130-400); Red Blood Count 3.46 MC/CUMM (3.8-5.5); Red Cell Distribution Width 13.5 % (9.3-17.3); White Blood Count 10.7 T/CUMM (4-12)
[2022-07-26 06:16] LABS: Albumin 3.4 G/DL (3.4-5.0); Bilirubin,Total 0.6 MG/DL (0.20-1.00); Calcium 8.5 MG/DL (8.5-10.1); Osmolality,Calculated 279.5 MOS/KG (273-304); Potassium 4.1 MMOL/L (3.5-5.1); Total Protein 6.5 G/DL (6.4-8.2)
[2022-07-26] MEDS ORDERED: BUPIVACAINE MPF 0.25% 10 ML VIAL ONE (09:56)
[2022-07-26] MEDS ORDERED: TISSUE ADHESIVE 1 EACH APPLICATOR TOP ONE (09:57)
[2022-07-26] MEDS ORDERED: LIDOCAINE 1%/EPI INJ 20 ML VIAL ONE (09:57)
[2022-07-26] MEDS ORDERED: SUCCINYLCHOLINE 200 MG/10 ML VIAL ONE (10:00)
[2022-07-26] MEDS ORDERED: fentaNYL 100 MCG/2 ML VIAL ONE (10:00)
[2022-07-26] MEDS ORDERED: propofoL 200 MG/20 ML VIAL IV ONE (10:00)
[2022-07-26] MEDS ORDERED: LIDOCAINE 2% 5 ML VIAL ONE (10:00)
[2022-07-26] MEDS ORDERED: ONDANSETRON 4 MG/2 ML VIAL ONE (10:00)
[2022-07-26] MEDS ORDERED: ROCURONIUM 50 MG/5 ML VIAL IV ONE (10:00)
[2022-07-26] MEDS ORDERED: NEOSTIGMINE 10 MG/10 ML VIAL ONE (10:56)
[2022-07-26] MEDS ORDERED: GLYCOPYRROLATE 0.4 MG/2 ML VIAL ONE ×2 (10:56→11:15)
[2022-07-26] MEDS ORDERED: LACTATED RINGERS 1,000 ML IV ONE (10:56)
[2022-07-26] MEDS ORDERED: ALBUTEROL/IPRATROPIUM 3 ML NEB RESP TX ONE (11:19)
[2022-07-26] MEDS ORDERED: HYDROmorphone 1 MG/1 ML SYRINGE IV PRN (12:14)
[2022-07-26] MEDS: PANTOPRAZOLE 40 MG VIAL IV SCH (13:35)
[2022-07-26] MEDS: PIPERACILLIN/TAZOBACTAM 3,375 MG in SODIUM CHLORIDE 0.9% 100 ML IV SCH ×2 (14:02→20:44)
[2022-07-27] MEDS: PIPERACILLIN/TAZOBACTAM 3,375 MG in SODIUM CHLORIDE 0.9% 100 ML IV SCH ×2 (04:00→12:22)
[2022-07-27] MEDS: HYDROmorphone 1 MG/1 ML SYRINGE IV PRN (05:01)
[2022-07-27 05:57] LABS: Basophils % 0.1 % (0.0-0.8); Hematocrit 36.2 VOL% (35.7-47.0); Hemoglobin 11.6 GM/DL (12.0-16.0); Immature Granulocytes % 0.4 %; Immature Granulocytes Absolute 0.03 #; Lymphocytes # 0.4 10*3/uL (1.4-4.0); Lymphocytes % 5.1 % (21.3-54.2); Mean Corpuscular Volume 105.8 FL (87-102); Mean Platelet Volume 9.5 FL (9.6-12.0); Monocytes # 0.4 10*3/uL (0.11-0.8); Monocytes % 6.2 % (1.7-12.7); Neutrophils % 88.2 % (38.7-73.9); Platelet Count 171 T/CUMM (130-400); Red Blood Count 3.42 MC/CUMM (3.8-5.5); Red Cell Distribution Width 13.4 % (9.3-17.3); White Blood Count 7.08 T/CUMM (4-12)
[2022-07-27 06:19] LABS: Calcium 8.8 MG/DL (8.5-10.1); Osmolality,Calculated 281.4 MOS/KG (273-304); Potassium 4.3 MMOL/L (3.5-5.1)
[2022-07-27] MEDS ORDERED: LEVOTHYROXINE 50 MCG TABLET PO SCH (06:30)
[2022-07-27] MEDS ORDERED: ALBUTEROL/IPRATROPIUM 3 ML NEB RESP TX SCH (07:00)
[2022-07-27] MEDS ORDERED: AMIODARONE 200 MG TABLET PO SCH (09:00)
[2022-07-27] MEDS ORDERED: ROSUVASTATIN 20 MG TABLET PO SCH (09:00)
[2022-07-27] MEDS ORDERED: SPIRONOLACTONE 25 MG TABLET PO SCH (09:00)
[2022-07-27] MEDS ORDERED: MONTELUKAST 10 MG TABLET PO SCH (09:00)
[2022-07-27] MEDS ORDERED: FLUTICASONE 44 MCG/PUFF INHALER 10.6 GM INH SCH (09:00)
[2022-07-27] MEDS ORDERED: DILTIAZEM CD 120 MG CAPSULE PO SCH (09:00)
[2022-07-27] MEDS: PANTOPRAZOLE 40 MG VIAL IV SCH (10:05)
[2022-07-27] MEDS: DEXTROSE 5% NACL 0.45% 1,000 ML IV SCH ×2 (10:10→12:22)
[2022-07-27 12:16] VITALS: BP 112/82
[2022-07-27] MEDS ORDERED: AMITRIPTYLINE 50 MG TABLET PO SCH (21:00)
== END 2022-07-27 12:50 | disposition home or self-care (01) ==
LOC: N.ED 22:09 → N.EDINP 22:09 → N.3E 07-26 13:24
PROVIDERS: ADMIT Family Medicine; ATTEND Family Medicine